=== PATIENT | male | born 2000 | race Caucasian/White ===

== ENCOUNTER → 2023-08-11 | Day surgery (SDC) | payer OTHER ==
[~2023-08-11] VITALS: Ht 170.2 cm; Wt 84.2 kg
[2023-08-11 15:25] VITALS: BP 147/80; TEMP 97; O2SAT 99
== END | disposition home or self-care (01) ==
LOC: M SDC 13:42
PROVIDERS: ATTEND Orthopaedic Surgery
DX: M79.A29 Nontraumatic compartment syndrome of unspecified lower extremity (principal)

== ENCOUNTER → 2023-11-02 | Outpatient (CLI) | payer OTHER | LOC: M RAD 11:21 | DX: S52.502A Unspecified fracture of the lower end of left radius, initial encounter for closed fracture (principal); W18.30XA Fall on same level, unspecified, initial encounter; Y92.009 Unspecified place in unspecified non-institutional (private) residence as the place of occurrence of the external cause ==

== ENCOUNTER → 2023-11-04 | Outpatient (CLI) | payer OTHER | LOC: M SOG 07:57 | PROVIDERS: ATTEND Physician Assistant | DX: Z53.9 Procedure and treatment not carried out, unspecified reason (principal) ==

== ENCOUNTER 2023-11-12 11:59 | Day surgery (SDC) | payer OTHER ==
[~2023-11-12] VITALS: Ht 167.6 cm; Wt 83.2 kg
[2023-11-12] MEDS ORDERED: LR 1,000 ML IV SCH (12:40)
[2023-11-12] MEDS ORDERED: fentaNYL 100 MCG/2 ML INJECTION ONE (13:23)
[2023-11-12] MEDS ORDERED: ACETAMINOPHEN 1000MG/100ML IV BAG ONE (13:23)
[2023-11-12] MEDS ORDERED: LIDOCAINE 2% 100MG/5ML SDV (FOR ANES.) ONE (13:23)
[2023-11-12] MEDS ORDERED: propofoL 200 MG/20 ML VIAL ONE (13:23)
[2023-11-12] MEDS ORDERED: MIDAZOLAM INJ 2MG/2ML VIAL IV PRN (14:00)
[2023-11-12] MEDS ORDERED: LIDOCAINE 1% SDV 5ML VIAL PN ONE (14:00)
[2023-11-12] MEDS: fentaNYL 100 MCG/2 ML INJECTION IV PRN (14:32)
[2023-11-12] MEDS ORDERED: BACITRACIN OINTMENT 30GM TUBE ONE (14:33)
[2023-11-12] MEDS: ROPIvacaine 0.5% 30ML VIAL PN ONE (14:36)
[2023-11-12] MEDS: dexAMETHasone 10MG/1ML VIAL PRES.FREE PN ONE (14:36)
[2023-11-12] MEDS: ceFAZolin SOD 2 GM in IV 1 EA IV ONE (14:55)
[2023-11-12] MEDS ORDERED: ePHEDrine SULFATE 25 MG/5 ML(5MG/ML) SYRINGE ONE (15:01)
[2023-11-12] MEDS ORDERED: PERC5TAB12 PO (16:28)
[2023-11-12 17:55] VITALS: BP 117/59; TEMP 97.1; O2SAT 98
== END 2023-11-12 18:04 | disposition home or self-care (01) ==
LOC: M SDC 11:59
PROVIDERS: ATTEND Orthopaedic Surgery Hand Surgery
DX: S52.612A Displaced fracture of left ulna styloid process, initial encounter for closed fracture (principal); X58.XXXA Exposure to other specified factors, initial encounter; Y92.89 Other specified places as the place of occurrence of the external cause; Y93.9 Activity, unspecified; Y99.9 Unspecified external cause status; F17.200 Nicotine dependence, unspecified, uncomplicated
CPT/HCPCS: 25608; 64418; 76000; C1713; J0131; J0665; J0690; J1100; J2795; J3010

== ENCOUNTER → 2023-11-24 | Outpatient (CLI) | payer OTHER ==
[~2023-11-24] MED LIST: PERC5TAB12 PO
== END ==
LOC: M SOG 07:21
PROVIDERS: ATTEND Physician Assistant
DX: M25.532 Pain in left wrist (principal)

== ENCOUNTER → 2023-12-08 | Outpatient (CLI) | payer OTHER | LOC: M SOG 07:21 | PROVIDERS: ATTEND Physician Assistant | DX: S52.512 Displaced fracture of left radial styloid process (principal) ==

== ENCOUNTER → 2023-12-28 | Outpatient (CLI) | payer OTHER | LOC: M SOG 07:22 | PROVIDERS: ATTEND Physician Assistant | DX: M25.532 Pain in left wrist (principal) ==

== ENCOUNTER → 2024-01-26 | Outpatient (CLI) | payer OTHER | LOC: M SOG 07:52 | PROVIDERS: ATTEND Physician Assistant | DX: M25.532 Pain in left wrist (principal) ==